=== PATIENT | female | born 1990 | race Caucasian/White ===

== ENCOUNTER 2025-02-03 15:01 | Outpatient (CLI) | payer OTHER, SELFPAY ==
--- NOTE | ~2025-02-03 | US_ITS ---
EXAMINATION: US pelvic complete w TV INDICATION: Carson cystic ovaries. Comparison:No prior studies for comparison. TECHNIQUE: Multiple transabdominal and endovaginal sonographic images of the pelvis performed. FINDINGS: The uterus measures 7.9 x 4 x 6.1 cm. The endometrial complex measures 6 mm. There is trace fluid in the cervix. The right ovary measures 3.6 x 2.7 x 1.9 cm and the left ovary measures 2.8 x 1.5 x 3.5 cm. There is a right ovarian cyst measuring 3 cm. There is a left ovarian cyst measuring 1.7 cm. There are small follicles in each ovary. Normal doppler signal in both ovaries. There is no free fluid in the pelvis. There are no abnormal masses seen on either side. IMPRESSION: 1. Bilateral ovarian cysts on the right being exophytic from the ovary measuring 3 cm. Alternatively this could represent a paraovarian cyst. Reviewed, dictated and finalized at location O. IMPRESSION: 1. Bilateral ovarian cysts on the right being exophytic from the ovary measurin g 3 cm. Alternatively this could represent a paraovarian cyst.
--- OUTSIDE RECORDS SUMMARY | 2025-02-03 15:08 | XMS_ITS | Clinical Summary ---
Author Organization [facility] Address [address] [place] [id number] Care Team Providers Care Computer Drafter Name Role Phone Brenda Santiago MD Primary Care Pro vider Allergies Active Allergy Reactions Criticality Noted Date Comments Ragweed Unknown 03/30/2023 Medications Slynd tablet tablet 03/28/2023 Active escitalopram (LEXAPRO) 10 mg tablet for crush-dissolve partial tablet doses 01/04/2024 Active Mounjaro 10 mg/0.5 mL pen injector injection 11/27/2023 Active metFORMIN (GLUCOPHAGE) 500 mg tablet Take 1 tablet (500 mg total) by mouth daily 08/21/2024 Active spironolactone (ALDACTONE) 100 mg tabletIndication s:Primary hypertension,And rogenic alopecia Take 1 tablet (100 mg total) by mouth daily 90 tablet 3 10/03/2024 Active Active Problems Problem Noted Date Diagnosed Date Family history of heart attack 11/10/2024 Annual physical exam 10/02/2023 Assessment & Plan (10/03/2024 10:40 AM CDT): Reviewed PMH & FH Reviewed medications and supplements HCM: orders placed as needed Assessment & Plan (10/02/2023 12:41 PM CDT): Reviewed PMH & FH Reviewed medications and supplements HCM: orders placed as needed Counseled on healthy lifestyle Primary hypertension 03/30/2023 Assessment & Plan (10/03/2024 10:55 AM CDT): Blood pressure controlled on spironolactone Transition from sitting>standing slowly to avoid hypotension Assessment & Plan (10/02/2023 12:42 PM CDT): Blood pressure controlled off medication Continue lifestyle modification Continue to monitor, follow up if persistently >140/90 ROSA (generalized anxiety disorder) 03/30/2023 Assessment & Plan (10/03/2024 10:40 AM CDT): On lexapro Assessment & Plan (10/02/2023 11:48 AM CDT): Stable Continue zoloft 50mg Insulin resistance 03/30/2023 Assessment & Plan (10/03/2024 11:01 AM CDT): On metformin and mounjaro Assessment & Plan (10/02/2023 12:42 PM CDT): On victoza and metformin Upcoming appointment with endo Immunizations Immunization Administration Dates Next Due Influenza, Unspecified 03/15/2023(Deferred: Swati ent Refused) Tdap 10/02/2023 Surgical History Surgery Date Site/Laterality Comments WISDOM TOOTH EXTRACTION Bilateral Medical History Medical History Date Comments Anxiety Insulin resistance Menstrual problem 2017 Family History Medical History Relation Name Comments Kidney disease Father Adeel Daniel Diabetes Maternal Grandfather Michi Fall Heart attack Maternal Grandfather Bill Wittekind Heart disease Maternal Grandfather Bill Wittekind Cancer Mother's Sister Duryared [place] Depression Paternal Grandmother Lubna Heitzman Kidney disease Paternal Grandmother Lubna Heitzman Mental illness Paternal Grandmother Lubna Heitzman Bipolar disorder Sister 1 Depression Sister 2 Maite Fredy Mental illness Sister 2 Maite Fredy Relation Name Status Comments Father Adeel Daniel Alive Maternal Grandfather Michi Fall Mother Alive Mother's Sister Nadia Tiera Paternal Grandmother Lubna Woodsitzsherif Sister 1 Alive Sister 2 Maite Meikehinde Social History Tobacco Use Types Packs/Day Years Used Date Smoking Tobacco: Never Smokeless Tobacco: Never AUDIT-C Answer Date Recorded Frequency of Alcohol Consumption Not on file 10/03/2024 Q2: How many drinks containi ng alcohol do you have on a typical day when you are drinking? Patient does not drink Frequency of Binge Drinking Not on file 09/14 PHQ-2 Answer Date Recorded PHQ-2 Total Score (If total score is 3 or more points, staff should administer the PHQ-9) 2 10/03/2024 PHQ-9 Answer Date Recorded PHQ-9 Total Score 4 10/03/2024 Comments Unknown Sex and Gender Information Value Date Recorded Sex Assigned at Not on file Legal Sex Female 12:15 PM CDT Gender Identity Female 03/30/2023 3:24 PM CDT Sexual Orientation Straight 03/30/2023 3: 24 PM CDT Obstetrics History Last Filed Vital Signs Vital Sign Reading Time Taken Comments Blood Pressure 118/76 10/03/2024 10:25 AM CDT Pulse 80 10/03/2024 10:25 AM CDT Temperature 36.6 C (97.8 F) 10/03/2024 10:25 AM CDT Respiratory Rate 18 10/03/2024 10:25 AM CDT Oxygen Saturation 98% 10/03/2024 10:25 AM CDT Inhaled Oxygen Concentration - - Weight 87 kg (191 lb 11.2 oz) 10/03/2024 10:25 A M CDT Height 172.7 cm (5' 8) 10/03/2024 10:25 AM CDT Body Mass Index 29.15 10/03/2024 10:25 AM CDT Plan of Treatment Health Maintenance Due Date Last Done Comments Cervical Cancer Screening 1991 HPV Vaccines (1 - 3-dose SCDM series) 10/28/2018 Covid-19 Vaccine ( season) 2024 07/04/2021, 08/23/2020 Influenza Vaccine (#1) 2025 Depression Screening 10/03/2025 10/03/2024, 10/03/2024, 03/30/2023 Regular Well Visit/Exam 18-64 10/03/2025 10/03/2024, 10/02/2023 DTaP/Tdap/Td Vaccine (2 - Td or Tdap) 10/01/2033 10/02/2023 Hepatitis B Screening Completed 10/03/2024 Hepatitis C Screening Completed 10/03/2024 Pneumococcal vaccine <65 Aged Out No longer eligible based on patient's age to complete this topic Varicella Vaccines Discontinued Procedures Procedure Name Priority Date/Time Associated Diagnosis Comments HEPATITIS C ANTIBODY Routine 10/03/2024 11:29 AM CDT Encounter for screening for other viral diseases from Last 3 Months or Most Recently Relevant to Health Maintenance Results * Hepatitis C antibody Blood (10/03/2024 11:29 AM CDT) Hep C Ab NON-REACTI VE NON-REACT [facility] Comment: HCV antibody was non-reactive. There is no laboratory evidence of HCV infection. In most cases, no further action is required. However, if recent HCV exposure is suspected, a test for HCV RNA (test code 76105) is suggested. For additional information please refer to http://education.[employer]/faq/BYZ09u8 (This link is being provided for informational/ educational purposes only.) Blood 10/03/2024 11:2 9 AM CDT 10/03/2024 11:29 AM CDT Narrative [facility] - 10/04/2024 5:58 AM CDT FASTING:YES FASTING: YES Brenda Santiago MD LAB MICROBIOLOGY - GENERAL ORDERABLES Final Result [facility] [id number] [place] [id number] from Last 3 Months or Most Recently Relevant to Health Maintenance Insurance [facility] Care Teams Computer Drafter Relationship Specialty Start Date End Date Brenda Santiago MD [address] [place] [phone] PCP - General Family Medicine 03/30/23
== END 2025-02-03 15:02 | disposition home or self-care (01) ==
PROVIDERS: PCP Hospitalist; Visit Provider Nurse Practitioner
DX: E28.2 Polycystic ovarian syndrome (principal); R19.09 Other intra-abdominal and pelvic swelling, mass and lump
CPT/HCPCS: 76830; 76856